=== PATIENT | male | born 1945 | race Caucasian/White ===

== ENCOUNTER 2019-08-27 17:03 | Emergency (ER) | payer MEDICARE, BC ==
--- NOTE | 2019-08-27 17:09 | EDM.PDOC ---
ED HPI GENERAL MEDICAL PROBLEM - General Stated Complaint: "I'm fine" Time Seen by Provider: 08/27/19 17:07 Source of Information: Reports: Patient History Limitations: Reports: No Limitations - History of Present Illness INITIAL COMMENTS - FREE TEXT/NARRATIVE: 74-year-old male who was hunting pheasants all day with his family and friends. He really did not do any strenuous activity during this period of time in that he did not do any prolonged walking and he seemed to be responding appropriately and having no complaints through most of the afternoon. This afternoon at approximately 2:30 to 3 PM, they stopped at a bar and had multiple drinks. Apparently the patient had 3 beers and 2 mixed drinks over a relatively short period of time. He did not really eat or drink at other things through the day. Apparently in the car ride on the way home he seemed to be disengaged and "out of it". He also seemed to have very slurred speech and really seem to be making sense when they talked to him. He really had no complaints though he had no chest pain complaints or shortness of breath complaints and he did not complain of any headache. When they took him home. He was having pretty extensive difficulty walking and they had to assist him quite a bit apparently. He also apparently fell while he was in the garage and they are unsure if he hit his head. At this point he seems incoherent to them and he apparently had an episode of vomiting at home in with these symptoms, they were concerned that he could be having a stroke and brought into the emergency department for evaluation. Upon arrival. The patient presents via private vehicle and is brought in by [facility]. His only complaint was that he threw up. He denies any headache or chest pain or shortness of breath this point. He does have a strong odor of alcohol on his breath and he has slurred speech he does seem to be moving his arms and legs symmetrically and appropriately and he was able to assist the staff to get onto the stretcher. There are no other associated signs or symptoms. There are no other modifying factors. Onset: Today (3:30 PM) Duration: Getting Worse (Seems to have worsened over time) Location: Reports: Other (No reported pain) Quality: Reports: Other (No pain just altered mental status) Severity: Moderate Improves with: Reports: None Worsens with: Reports: None Context: Reports: Other (As above) Associated Symptoms: Reports: Confusion, Nausea/Vomiting, Weakness (Generalized) Treatments [employer]: Reports: Other (see below) (Nothing) - Related Data Allergies Allergy/AdvReac Type Severity Reaction Status Date / Time No Known Allergies Allergy Verified 08/27/19 18:17 Home Meds: Home Meds Allopurinol [Zyloprim] 300 mg PO DAILY 08/31/15 [History] Aspirin [Halfprin] 81 mg PO DAILY 08/31/15 [History] Atenolol/Chlorthalidone [Atenolol-Chlorthalidone 50-25] 0.5 tab PO DAILY [History] Calcium Carbonate/Vitamin D3 [Caltrate 600 Plus D3 Tablet] 1 each PO DAILY 08/31 [History] Cholecalciferol (Vitamin D3) [Vitamin D3] 1,000 unit PO DAILY 08/31/15 [History] Fluticasone Propionate [Flonase] 1 spray NS DAILY 08/31/15 [History] Glucosamine [Glucosamine Sulfate] 2 tab PO DAILY 08/31/15 [History] Multivitamin with Minerals [Multiple Vitamin] 1 tab PO DAILY 08/31/15 [History] Pyridostigmine [Mestinon] 60 mg PO DAILY 08/31/15 [History] Sildenafil [Viagra] 100 mg PO DAILY 08/31/15 [History] predniSONE [Prednisone] 5 mg PO DAILY 08/31/15 [History] Past Medical History HEENT History: Reports: Allergic Rhinitis, Cataract, Macular Degeneration Other HEENT History: CERVICALGIA Cardiovascular History: Reports: CAD, High Cholesterol, Hypertension, Other ( See Below) Other Cardiovascular History: EDEMA Respiratory History: Reports: Asthma Gastrointestinal History: Reports: Colon Polyp, Hemorrhoids Genitourinary History: Reports: Other (See Below) Other Genitourinary History: 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 Usually has 1-2 drinks every day) - Living Situation & Occupation Living situation: Reports: , with Spouse Occupation: Retired ED ROS GENERAL - Review of Systems Review Of Systems: See Below Constitutional: Reports: Weakness (Generalized weakness since approximately 3: 30 PM. No symptoms prior.) HEENT: Reports: No Symptoms Respiratory: Reports: No Symptoms Cardiovascular: Reports: No Symptoms GI/Abdominal: Reports: Vomiting (1) : Reports: No Symptoms Musculoskeletal: Reports: No Symptoms Skin: Reports: No Symptoms Neurological: Reports: Trouble Speaking (Reported slurred speech), Difficulty Walking (As above.), Other (No reports of localized area of weakness or numbness.) Hematologic/Lymphatic: Reports: No Symptoms Immunologic: Reports: No Symptoms ED EXAM, GENERAL - Physical Exam Exam: See Below Exam Limited By: No Limitations General Appearance: Alert, WD/WN, No Apparent Distress Eye Exam: Bilateral Eye: EOMI (There is lateral gaze nystagmus at less than 45. ), Normal Inspection Ears: Normal External Exam, Hearing Grossly Normal Ear Exam: Bilateral Ear: Auricle Normal Nose: Normal Inspection, Normal Mucosa, No Blood Throat/Mouth: Normal Voice, No Airway Compromise, Other (Strong odor of alcohol on his breath) Head: Normocephalic, Other (There is some swelling over his right parietal scalp area. There is no crepitus or depression noted here.) Neck: Normal Inspection, Supple, Non-Tender, Full Range of Motion Respiratory/Chest: No Respiratory Distress, Lungs Clear, Normal Breath Sounds, No Accessory Muscle Use, Chest Non-Tender Cardiovascular: Normal Peripheral Pulses, Regular Rate, Rhythm, No JVD Peripheral Pulses: 2+: Radial (L), Radial (R) GI/Abdominal: Normal Bowel Sounds, Soft, Non-Tender, No Organomegaly, No Mass Back Exam: Normal Inspection Extremities: Normal Range of Motion, Non-Tender, Normal Capillary Refill, Pedal Edema (This is reported as chronic per the .) Neurological: Alert, Oriented (3), CN II-XII Intact, No Motor/Sensory Deficits , Other (Slurred speech but no pronator drift and no localizing signs) Skin Exam: Warm, Dry, Intact, Normal Color, No Rash EKG INTERPRETATION EKG Date: 08/27/19 Time: 17:04 Rhythm: NSR Rate (Beats/Min): 51 [place]: LAD-Left [place] Deviation (Left anterior fascicular block) P-Wave: Present QRS: Other (Left anterior fascicular block) ST-T: Other (Lateral T-wave flattening) QT: Prolonged OR/PQ Interval: OR appears normal to me at less than 210 Comparison: NA - No Prior EKG EKG Interpretation Comments: There is no old EKG for comparison. There is no acute injury pattern or acute pattern of ischemia. Course - Vital Signs Last Recorded V/S: Last Vital Signs Temp 36.8 C 08/27/19 17:05 Pulse 51 L 08/27/19 17:05 Resp 18 08/27/19 17:05 BP 147/69 H 08/27/19 17:05 Pulse Ox 97 08/27/19 17:05 - Orders/Labs/Meds Orders: Active Orders 24 hr Category Date Time Status EKG Documentation Completion [RC] ASDIRECTED Care 08/27/19 17:24 Active Head wo Cont [CT] Stat Exams 08/27/19 17:22 Taken Sodium Chloride 0.9% [Normal Saline] 1,000 ml Med 08/27/19 17:30 Active IV ASDIRECTED Sodium Chloride 0.9% [Saline Flush] Med 08/27/19 17:22 Active 10 ml FLUSH ASDIRECTED PRN Peripheral IV Insertion Adult [OM.PC] Routine Oth 08/27/19 17:22 Ordered EKG 12 Lead [EK] Routine Ther 08/27/19 17:22 Ordered Medication Orders Sodium Chloride (Normal Saline) 1,000 mls @ 999 mls/hr IV ASDIRECTED NATALIE Last Admin: 08/27/19 17:31 Dose: 999 mls/hr Sodium Chloride (Saline Flush) 10 ml FLUSH ASDIRECTED PRN PRN Reason: Keep Vein Open Labs: Laboratory Tests 08/27/19 08/27/19 08/27/19 Range/Units 17:35 17:35 17:35 WBC 7.1 (4.5-12.0) X10-3/uL RBC 4.76 (4.30-5.75) x10(6)uL Hgb 15.1 (13.5-17.8) g/dL Hct 45.3 (30.0-51.3) % MCV 95.2 (80-96) fL MCH 31.6 (27.7-33.6) pg MCHC 33.2 (32.2-35.4) g/dL RDW 12.8 (11.5-15.5) % Plt Count 118 L (125-369) X10(3)uL MPV 7.4 (7.4-10.4) fL Neut % (Auto) 64.7 (46-82) % Lymph % (Auto) 25.5 (13-37) % [place] % (Auto) 6.9 (4-12) % Eos % (Auto) 2 (1.0-5.0) % Baso % (Auto) 1 (0-2) % Neut # (Auto) 4.6 (1.6-8.3) # Lymph # (Auto) 1.8 (0.6-5.0) # [place] # (Auto) 0.5 (0.0-1.3) # Eos # (Auto) 0.2 (0.0-0.8) # Baso # (Auto) 0.0 (0.0-0.2) # Sodium 138 (135-145) mmol/L Potassium 3.7 (3.5-5.3) mmol/L Chloride 103 (100-110) mmol/L Carbon Dioxide 21 (21-32) mmol/L BUN 39 H (7-18) mg/dL Creatinine 2.6 H* (0.70-1.30) mg/dL Est Cr Clr Drug Dosing TNP Estimated GFR (MDRD) 24 L (>60) BUN/Creatinine Ratio 15.0 (9-20) Glucose 127 H (80-116) mg/dL Calcium 8.3 L (8.6-10.2) mg/dL Magnesium 1.8 (1.8-2.5) mg/dL Total Bilirubin 0.6 (0.1-1.3) mg/dL AST 19 (5-25) IU/L ALT 20 (12-36) U/L Alkaline Phosphatase 53 L (56-112) IU/L Troponin I < 0.017 L (<0.017-0.056) ng/mL C-Reactive Protein < 0.2 L (0.5-0.9) mg/dL Total Protein 6.5 (6.0-8.0) g/dL Albumin 3.3 (3.2-4.6) g/dL Globulin 3.2 g/dL Albumin/Globulin Ratio 1.0 Ethyl Alcohol 0.23 H* (<0.03) % Meds: Medications Generic Name Dose Route Start Last Admin Trade Name Freq PRN Reason Stop Dose Admin Sodium Chloride 1,000 mls @ 999 mls/hr 08/27/19 17:30 08/27/19 17:31 Normal Saline IV 999 mls/hr ASDIRECTED NATALIE Administration Sodium Chloride 10 ml 08/27/19 17:22 Saline Flush FLUSH ASDIRECTED PRN Keep Vein Open Discontinued Medications Generic Name Dose Route Start Last Admin Trade Name Freq PRN Reason Stop Dose Admin Ondansetron HCl 4 mg 08/27/19 17:25 08/27/19 17:32 Zofran IVPUSH 08/27/19 17:26 4 mg ONETIME ONE Administration - Re-Assessments/Exams Free Text/Narrative Re-Assessment/Exam: 08/27/19 18:40: Patient is awake and alert. He still has somewhat slurred speech and there is a strong odor of alcohol his breath. His serum alcohol was 230 mg/dL. His other blood tests were normal except for a creatinine of 2.6 which the patient and his no of and have been told that he has renal insufficiency. The EKG although not normal does not show any acute injury pattern or any acute pattern of ischemia he is having no chest symptoms. The CT scan of his head showed no fracture or bleeding. He does have evidence of head injury with movement, on his right parietal scalp which probably occurred when he fell try to get into the house this evening. I feel that his symptoms of altered mental status, discoordination and vomiting are most probably related to acute alcohol intoxication and I discussed this with the patient with his . I do not see any evidence of a cardiac issue or any evidence of a stroke. He is much more awake and fluid in his conversation then he was upon arrival. I have given the patient a normal saline bolus as well as some Zofran. He has had no further emesis. The plan will be to ambulate the patient and if he ambulates well he will be discharged home. 08/27/19 19:20: The patient ambulated well. He has remained vitally stable. The patient and his are in agreement with the plans for discharge. Departure - Departure Time of Disposition: 19:30 Disposition: Home, Self-Care 01 Condition: Good (Improved) Clinical Impression: Alcoholic liver disease, Thrombocytopenia, Dehydration Alcoholic intoxication Qualifiers: Complication of substance-induced condition: uncomplicated Qualified Code(s): F10.920 - Alcohol use, unspecified with intoxication, uncomplicated Fall from standing Qualifiers: Encounter type: initial encounter Qualified Code(s): W19.XXXA - Unspecified fall, initial encounter Contusion of head Qualifiers: Encounter type: initial encounter Contusion of head detail: scalp Qualified Code(s): S00.03XA - Contusion of scalp, initial encounter Chronic renal insufficiency Qualifiers: Chronic kidney disease stage: stage 3 (moderate) Qualified Code(s): N18.3 - Chronic kidney disease, stage 3 (moderate) - Discharge Information Instructions: Alcoholic Liver Disease, [id number], Alcohol Use Disorder, Alcohol Intoxication, [id number], Dehydration, Adult, [id number] Referrals: Everett Persaud MD [Primary Care Provider] - Forms: ED Department Discharge Additional Instructions: Your EKG showed no evidence of a heart attack. The CT scan of your head showed no bleeding or fracture but you do have a bruise or contusion to your right scalp. Your blood tests showed evidence of chronic kidney disease, low platelet count and elevated liver tests. Your blood alcohol was 230 mg/dL which is quite high (it is 3 times the legal limit). The low platelet count and the elevated liver tests suggest that you have alcohol-related liver disease and all of these things suggest that you have been overusing alcohol. You should strongly sitter decreasing or stopping her alcohol use as it appears to be affecting your health in a negative way. Rest. Drink plenty of fluids. Follow-up with your primary doctor. Back to the emergency department for unrelenting vomiting, change in level of responsiveness or any other concerning sign or symptom. - My Orders Last 24 Hours: My Active Orders 08/27/19 17:22 Head wo Cont [CT] Stat Sodium Chloride 0.9% [Saline Flush] 10 ml FLUSH ASDIRECTED PRN Peripheral IV Insertion Adult [OM.PC] Routine EKG 12 Lead [EK] Routine 08/27/19 17:24 EKG Documentation Completion [RC] ASDIRECTED 08/27/19 17:30 Sodium Chloride 0.9% [Normal Saline] 1,000 ml IV ASDIRECTED - Assessment/Plan Last 24 Hours: My Active Orders 08/27/19 17:22 Head wo Cont [CT] Stat Sodium Chloride 0.9% [Saline Flush] 10 ml FLUSH ASDIRECTED PRN Peripheral IV Insertion Adult [OM.PC] Routine EKG 12 Lead [EK] Routine 08/27/19 17:24 EKG Documentation Completion [RC] ASDIRECTED 08/27/19 17:30 Sodium Chloride 0.9% [Normal Saline] 1,000 ml IV ASDIRECTED
[2019-08-27] MEDS ORDERED: Sodium Chloride 0.9% 10 ML Syringe FLUSH PRN (17:22)
[2019-08-27] MEDS ORDERED: Ondansetron 4 MG/2 ML SDV IVPUSH ONE (17:25)
[2019-08-27] MEDS ORDERED: Sodium Chloride 0.9% 1,000 ML IV SCH (17:30)
[2019-08-27 19:21] VITALS: BP 147/69; PULSE 51
== END 2019-08-27 19:36 | disposition home or self-care (01) ==
LOC: FB.ED 17:03
DX: S00.03XA Contusion of scalp, initial encounter (principal); I12.9 Hypertensive chronic kidney disease with stage 1 through stage 4 chronic kidney disease, or unspecified chronic kidney disease; E11.22 Type 2 diabetes mellitus with diabetic chronic kidney disease; N18.3 Chronic kidney disease, stage 3 (moderate); K70.9 Alcoholic liver disease, unspecified; F10.120 Alcohol abuse with intoxication, uncomplicated; D69.6 Thrombocytopenia, unspecified; E86.0 Dehydration; J45.909 Unspecified asthma, uncomplicated; I25.10 Atherosclerotic heart disease of native coronary artery without angina pectoris; E66.9 Obesity, unspecified; Z79.82 Long term (current) use of aspirin; Z79.899 Other long term (current) drug therapy; Z68.31 Body mass index [BMI] 31.0-31.9, adult; Y90.7 Blood alcohol level of 200-239 mg/100 ml; W19.XXXA Unspecified fall, initial encounter
CPT/HCPCS: 36415; 70450; 80053; 82962; 83735; 84484; 85025; 86140; 93005; 96374; 99284; G0480; J2405; J7030

== ENCOUNTER 2020-10-05 12:29 | Inpatient (IN) | payer MEDICARE, BC ==
[2020-10-05] MEDS ORDERED: cefTRIAXone 1 GM in Sodium Chloride 0.9% 50 ML IV SCH (13:00)
[2020-10-05] MEDS ORDERED: Azithromycin 500 MG in Sodium Chloride 0.9% 250 ML IV ONE (13:30)
[2020-10-05] MEDS: Sodium Chloride 0.9% 1,000 ML IV SCH (13:44)
[2020-10-05] MEDS: Enoxaparin 60 MG/0.6 ML Syringe SUBCUT SCH (13:45)
[2020-10-05] MEDS: cefTRIAXone 1 GM Vial IVPUSH SCH (13:46)
[2020-10-05] MEDS: Albuterol/Ipratropium 3.0-0.5 MG/3 ML Neb Soln NEB SCH ×2 (13:46→20:50)
--- NOTE | 2020-10-05 16:49 | PCM.HP.2 ---
H&P History of Present Illness - General Date of Service: 10/05/20 Admit Problem/Dx: Admission Diagnosis/Problem Admission Diagnosis/Problem Pneumonia Source of Information: Patient, Old Records History Limitations: Reports: No Limitations - History of Present Illness Initial Comments - Free Text/Narative: Aditya has had flulike symptoms since last week. They include cough,nasal congestion, sinus congestion. He also feels more short of breath than usual,and lethargic. He went in to see Dr Persaud for that reason. No headache or body aches.He has a h/o CAD s/CABG x 4,HTn,DM and CKD stage 3. DENIES ANY PAIN WHEN ASKED AT PRESENT TIME Pain Score (Numeric/FACES): 0 - Related Data Allergies/Adverse Reactions: Allergies Allergy/AdvReac Type Severity Reaction Status Date / Time No Known Allergies Allergy Verified 08/27/19 18:17 Home Medications: Home Meds Aspirin [Halfprin] 81 mg PO DAILY 08/31/15 [History] Calcium Carbonate/Vitamin D3 [Caltrate 600 Plus D3 Tablet] 1 each PO DAILY 08/31/15 [History] Fluticasone Propionate [Flonase] 1 spray NASBOTH DAILY PRN 08/31/15 [History] Pyridostigmine [Mestinon] 60 mg PO DAILY 08/31/15 [History] predniSONE [Prednisone] 5 mg PO DAILY 08/31/15 [History] Metoprolol Succinate [Toprol XL 50mg] 50 mg PO DAILY 10/05/20 [History] atorvaSTATin [Lipitor] 10 mg PO DAILY 10/05/20 [History] Past Medical History HEENT History: Reports: Allergic Rhinitis, Cataract, Macular Degeneration Other HEENT History: CERVICALGIA Cardiovascular History: Reports: CAD, High Cholesterol, Hypertension, Other (See Below) Other Cardiovascular History: EDEMA Respiratory History: Reports: Asthma Gastrointestinal History: Reports: Colon Polyp, Hemorrhoids Genitourinary History: Reports: Other (See Below) Other Genitourinary History: 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 Musculoskeletal History: Reports: Gout, Other (See Below) Other Musculoskeletal History: CERVICALGIA, MYASTHENIA GRAVIS Neurological History: Reports: None Psychiatric History: Reports: None Endocrine/Metabolic History: Reports: Diabetes, Type II, Obesity/BMI 30+ Hematologic History: Reports: None Immunologic History: Reports: None Oncologic (Cancer) History: Reports: None Dermatologic History: Reports: None - Past Surgical History Head Surgeries/Procedures: Reports: None HEENT Surgical History: Reports: None Cardiovascular Surgical History: Reports: Coronary Artery Bypass Respiratory Surgical History: Reports: None GI Surgical History: Reports: Colonoscopy Other GI Surgeries/Procedures: BENIGN NEOPLASM OF COLON, DYSPLASTIC COLON POLYP Male Surgical History: Reports: Other (See Below) Other Male Surgeries/Procedures: PSYCHOSEXUAL DYSFUNCTION WITH INHIBITED SEXUAL EXCITEMENT Endocrine Surgical History: Reports: None Neurological Surgical History: Reports: None Musculoskeletal Surgical History: Reports: None Social & Family History - Tobacco Use Tobacco Use Status *Q: Never Tobacco User - Caffeine Use Caffeine Use: Reports: Coffee Other Caffeine Use: 2-3 times a wk - Alcohol Use Days Per Week of Alcohol Use: 2 Number of Drinks Per Day: 3 Total Drinks Per Week: 6 - Recreational Drug Use Recreational Drug Use: No - Living Situation & Occupation Living situation: Reports: , with Spouse Occupation: Retired H&P Review of Systems - Review of Systems: Review Of Systems: Comprehensive ROS is negative, except as noted in HPI. Exam - Exam Exam: See Below - Vital Signs Vital Signs: Last Vital Signs Temp Pulse Resp BP Pulse Ox 96 10/05/20 12:40 Weight: 103.555 kg - Exam Quality Assessment: Supplemental Oxygen General: Alert HEENT: PERRLA Neck: Supple Lungs: Decreased Breath Sounds, Crackles, Rales Cardiovascular: Regular Rate GI/Abdominal Exam: Normal Bowel Sounds (Male) Exam: No Hernia Back Exam: Normal Inspection, Full Range of Motion Extremities: No Pedal Edema Skin: Warm Neurological: Cranial Nerves Intact Neuro Extensive - Mental Status: Alert Psychiatric: Alert, Normal Affect - Patient Data Lab Results Last 24 hrs: Laboratory Results - last 24 hr 10/05/20 10/05/20 10/05/20 Range/Units 12:45 14:10 14:10 WBC 7.7 (3.2-10.1) x10-3/uL RBC 4.38 (3.90-5.90) x10(6)uL Hgb 13.6 (12.9-17.7) g/dL Hct 41.7 (38.3-50.1) % MCV 95.2 (80.8-98.7) fL MCH 31.0 (27.0-33.3) pg MCHC 32.5 (28.7-35.3) g/dL RDW 14.2 (12.4-15.0) % Plt Count 162 (117-477) x10(3)uL MPV 8.2 (6.7-11.0) fL Neut % (Auto) 89.2 H (40.3-71.8) % Lymph % (Auto) 7.0 L (15.8-45.3) % [place] % (Auto) 3.5 L (5.5-15.2) % Eos % (Auto) 0.1 (0.1-6.8) % Baso % (Auto) 0.2 L (0.3-3.8) % Neut # (Auto) 6.9 (1.7-6.9) x10-3/uL Lymph # (Auto) 0.5 (0.5-4.5) x10-3/uL [place] # (Auto) 0.3 (0.0-1.2) x10-3/uL Eos # (Auto) 0.0 (0.0-0.6) x10-3/uL Baso # (Auto) 0.0 (0.0-0.3) x10-3/uL PT 12.5 H (9.0-11.1) sec INR 1.17 (1.00-1.24) APTT 32.4 (24.4-33.2) SECONDS D-Dimer, Quantitative 1.82 H (0.0-0.59) mg/LFEU Sodium (135-145) mmol/L Potassium (3.5-5.3) mmol/L Chloride (100-110) mmol/L Carbon Dioxide (21-32) mmol/L BUN (7-18) mg/dL Creatinine (0.70-1.30) mg/dL Est Cr Clr Drug Dosing mL/min Estimated GFR (MDRD) (>60) BUN/Creatinine Ratio (9-20) Glucose (80-116) mg/dL Calcium (8.6-10.2) mg/dL Total Bilirubin (0.1-1.3) mg/dL AST (5-25) IU/L ALT (12-36) U/L Alkaline Phosphatase (56-112) IU/L Total Protein (6.0-8.0) g/dL Albumin (3.2-4.6) g/dL Globulin g/dL Albumin/Globulin Ratio SARS-CoV-2 RNA (DAVID) Positive H (NEGATIVE) 10/05/20 Range/Units 14:10 WBC (3.2-10.1) x10-3/uL RBC (3.90-5.90) x10(6)uL Hgb (12.9-17.7) g/dL Hct (38.3-50.1) % MCV (80.8-98.7) fL MCH (27.0-33.3) pg MCHC (28.7-35.3) g/dL RDW (12.4-15.0) % Plt Count (117-477) x10(3)uL MPV (6.7-11.0) fL Neut % (Auto) (40.3-71.8) % Lymph % (Auto) (15.8-45.3) % [place] % (Auto) (5.5-15.2) % Eos % (Auto) (0.1-6.8) % Baso % (Auto) (0.3-3.8) % Neut # (Auto) (1.7-6.9) x10-3/uL Lymph # (Auto) (0.5-4.5) x10-3/uL [place] # (Auto) (0.0-1.2) x10-3/uL Eos # (Auto) (0.0-0.6) x10-3/uL Baso # (Auto) (0.0-0.3) x10-3/uL PT (9.0-11.1) sec INR (1.00-1.24) APTT (24.4-33.2) SECONDS D-Dimer, Quantitative (0.0-0.59) mg/LFEU Sodium 138 (135-145) mmol/L Potassium 3.7 (3.5-5.3) mmol/L Chloride 101 (100-110) mmol/L Carbon Dioxide 24 (21-32) mmol/L BUN 52 H D (7-18) mg/dL Creatinine 3.6 H* (0.70-1.30) mg/dL Est Cr Clr Drug Dosing 19.16 mL/min Estimated GFR (MDRD) 17 L (>60) BUN/Creatinine Ratio 14.4 (9-20) Glucose 143 H (80-116) mg/dL Calcium 8.5 L (8.6-10.2) mg/dL Total Bilirubin 0.6 (0.1-1.3) mg/dL AST 27 H D (5-25) IU/L ALT 20 (12-36) U/L Alkaline Phosphatase 55 L (56-112) IU/L Total Protein 7.1 (6.0-8.0) g/dL Albumin 2.2 L (3.2-4.6) g/dL Globulin 4.9 g/dL Albumin/Globulin Ratio 0.5 SARS-CoV-2 RNA (DAVID) (NEGATIVE) Result Diagrams: 10/06/20 06:30 10/06/20 06:30 Sepsis Event Note - Evaluation Sepsis Screening Result: No Definite Risk - Focused Exam Vital Signs: Vital Signs Pulse Ox Pulse Ox 10/05/20 12:40 96 10/05/20 12:35 96 - Problem List (1) COVID-19 SNOMED Code(s): 165686059 ICD Code: U07.1 - COVID-19 Status: Acute Current Visit: Yes (2) CKD (chronic kidney disease) SNOMED Code(s): 225603094 ICD Code: N18.9 - CHRONIC KIDNEY DISEASE, UNSPECIFIED Status: Acute Curre nt Visit: Yes Qualifiers: Chronic kidney disease stage: stage 3 (moderate) (3) Diabetes type 2, controlled SNOMED Code(s): 99329342, 696101756 ICD Code: E11.9 - TYPE 2 DIABETES MELLITUS WITHOUT COMPLICATIONS Status: Acute Current Visit: Yes Qualifiers: Diabetes mellitus emt intermediate insulin use: without intermediate use Diabetes mellitus complication status: with kidney complications Chronic kidney disease stage: stage 3 (moderate) (4) CAD (coronary artery disease) SNOMED Code(s): 54251645 ICD Code: I25.10 - ATHSCL HEART DISEASE OF [place] CORONARY ARTERY W/O ANG PCTRS Status: Chronic Current Visit: Yes Qualifiers: Coronary Disease-Associated Artery/Lesion type: bypass graft [place] vs. transplanted heart: [place] heart Associated angina: without angina Qualified Code(s): I25.810 - Atherosclerosis of coronary artery bypass graft(s) without angina pectoris (5) Myasthenia gravis SNOMED Code(s): 63973731 ICD Code: G70.00 - MYASTHENIA GRAVIS WITHOUT (ACUTE) EXACERBATION Status: Acute Current Visit: Yes Problem List Initiated/Reviewed/Updated: Yes Orders Last 24hrs: Active Orders 24 hr Category Date Time Status Patient Status [ADT] Routine ADT 10/05/20 12:38 Active Bedrest Bathroom Privileges [RC] ASDIRECTED Care 10/05/20 12:38 Active Blood Glucose Check, Bedside [RC] 07,17 Care 10/05/20 12:38 Active Height and Weight [RC] 0600 Care 10/05/20 12:38 Active Oxygen Therapy [RC] 08,16,00 Care 10/05/20 12:38 Active Pulse Oximetry [RC] PRN Care 10/05/20 12:40 Active RT Aerosol Therapy [RC] ASDIRECTED Care 10/05/20 12:51 Active Up ad Radha [RC] ASDIRECTED Care 10/05/20 12:38 Active VTE/DVT Education [RC] Per Unit Routine Care 10/05/20 12:38 Active Vital Signs [RC] 08,16,00 Care 10/05/20 12:38 Active Regular Diet [DIET] Diet 10/05/20 Lunch Active CBC WITH AUTO DIFF [HEME] Routine Lab 10/06/20 06:00 Ordered CULTURE SPUTUM + SMEAR [RM] Routine Lab 10/05/20 12:38 Ordered D-DIMER QUANTITATIVE [COAG] Routine Lab 10/06/20 06:00 Ordered FERRITIN, SERUM Routine Lab 10/05/20 14:10 Received RENAL FUNCTION PANEL,RFP [CHEM] Routine Lab 10/06/20 06:00 Ordered Albuterol/Ipratropium [DuoNeb 3.0-0.5 MG/3 ML] Med 10/05/20 13:00 Active 3 ml NEB Q8H Azithromycin [Zithromax] Med 10/06/20 09:00 Active 250 mg PO DAILY Enoxaparin [Lovenox] Med 10/05/20 13:30 Active 50 mg SUBCUT Q24H Metoprolol Succinate [Toprol XL] Med 10/06/20 09:00 Active 50 mg PO DAILY Pyridostigmine [Mestinon] Med 10/06/20 09:00 Active 60 mg PO DAILY Sodium Chloride 0.9% [Normal Saline] 1,000 ml Med 10/05/20 12:45 Active IV ASDIRECTED cefTRIAXone [Rocephin] Med 10/05/20 13:15 Active 1 gm IVPUSH Q24H predniSONE Med 10/06/20 09:00 Active 5 mg PO DAILY Antiembolic Hose [OM.PC] Per Unit Routine Oth 10/05/20 12:41 Ordered Resuscitation Status Routine Resus Stat 10/05/20 12:38 Ordered Medication Orders Albuterol/Ipratropium (Duoneb 3.0-0.5 Mg/3 Ml) 3 ml NEB Q8H [facility] Last Admin: 10/05/20 13:46 Dose: 3 ml Documented by: VOLODYMYR Azithromycin (Zithromax) 250 mg PO DAILY [facility] Stop: 10/09/20 23:59 Ceftriaxone Sodium (Rocephin) 1 gm IVPUSH Q24H [facility] Last Admin: 10/05/20 13:46 Dose: 1 gm Documented by: VOLODYMYR Enoxaparin Sodium (Lovenox) 50 mg SUBCUT Q24H [facility] Last Admin: 10/05/20 13:45 Dose: 50 mg Documented by: VOLODYMYR Sodium Chloride (Normal Saline) 1,000 mls @ 75 mls/hr IV ASDIRECTED [facility] Last Admin: 10/05/20 13:44 Dose: 75 mls/hr Documented by: VOLODYMYR Metoprolol Succinate (Toprol Xl) 50 mg PO DAILY [facility] Prednisone (Prednisone) 5 mg PO DAILY [facility] Pyridostigmine [place] (Mestinon) 60 mg PO DAILY [facility] Assessment/Plan Comment:: Admit for O2 supplementation,IV fluid,IV antibiotic and Decadron .DVT prophylaxis.Monitor Vital signs
[2020-10-05] MEDS: Dexamethasone 4 MG/ML SDV IVPUSH SCH (17:22)
[2020-10-05] MEDS: atorvaSTATin 10 MG Tab PO SCH (20:51)
[2020-10-06] MEDS: Sodium Chloride 0.9% 1,000 ML IV SCH (03:18)
[2020-10-06] MEDS: Albuterol/Ipratropium 3.0-0.5 MG/3 ML Neb Soln NEB SCH ×3 (05:53→19:59)
[2020-10-06] MEDS: Azithromycin 250 MG Tab PO SCH (08:04)
[2020-10-06] MEDS: Dexamethasone 4 MG/ML SDV IVPUSH SCH (08:05)
[2020-10-06] MEDS: Metoprolol Succinate 50 MG Tab.ER PO SCH (08:06)
[2020-10-06] MEDS ORDERED: predniSONE 5 MG Tab PO SCH (09:00)
[2020-10-06] MEDS ORDERED: Allopurinol 300 MG Tab PO SCH (09:00)
[2020-10-06] MEDS ORDERED: Furosemide 40 MG/4 ML VIAL IVPUSH ONE (09:01)
--- NOTE | 2020-10-06 09:05 | PCM.PN ---
- General Info Date of Service: 10/06/20 Subjective Update: Aditya is stable,although he has needed more oxygen supplementation. More SOB on exertion Functional Status: Reports: Pain Controlled, Tolerating Diet - Review of Systems HEENT: Reports: No Symptoms Pulmonary: Reports: Shortness of Breath. Denies: Sputum Cardiovascular: Reports: Dyspnea on Exertion, Orthopnea Gastrointestinal: Reports: No Symptoms Genitourinary: Reports: No Symptoms - Patient Data Vitals - Most Recent: Last Vital Signs Temp 97.1 F 10/06/20 07:09 Pulse 73 10/06/20 08:06 Resp 18 10/06/20 07:09 BP 144/86 H 10/06/20 08:06 Pulse Ox 91 L 10/06/20 07:10 Weight - Most Recent: 104.383 kg I&O - Last 24 Hours: Intake & Output 10/05/20 10/06/20 10/06/20 22:59 06:59 14:59 Intake Total 774 664 Balance 774 664 Lab Results Last 24 Hours: Laboratory Results - last 24 hr 10/05/20 10/05/20 10/05/20 Range/Units 12:45 14:10 14:10 WBC 7.7 (3.2-10.1) x10-3/uL RBC 4.38 (3.90-5.90) x10(6)uL Hgb 13.6 (12.9-17.7) g/dL Hct 41.7 (38.3-50.1) % MCV 95.2 (80.8-98.7) fL MCH 31.0 (27.0-33.3) pg MCHC 32.5 (28.7-35.3) g/dL RDW 14.2 (12.4-15.0) % Plt Count 162 (117-477) x10(3)uL MPV 8.2 (6.7-11.0) fL Neut % (Auto) 89.2 H (40.3-71.8) % Lymph % (Auto) 7.0 L (15.8-45.3) % [place] % (Auto) 3.5 L (5.5-15.2) % Eos % (Auto) 0.1 (0.1-6.8) % Baso % (Auto) 0.2 L (0.3-3.8) % Neut # (Auto) 6.9 (1.7-6.9) x10-3/uL Lymph # (Auto) 0.5 (0.5-4.5) x10-3/uL [place] # (Auto) 0.3 (0.0-1.2) x10-3/uL Eos # (Auto) 0.0 (0.0-0.6) x10-3/uL Baso # (Auto) 0.0 (0.0-0.3) x10-3/uL PT 12.5 H (9.0-11.1) sec INR 1.17 (1.00-1.24) APTT 32.4 (24.4-33.2) SECONDS D-Dimer, Quantitative 1.82 H (0.0-0.59) mg/LFEU Sodium (135-145) mmol/L Potassium (3.5-5.3) mmol/L Chloride (100-110) mmol/L Carbon Dioxide (21-32) mmol/L BUN (7-18) mg/dL Creatinine (0.70-1.30) mg/dL Est Cr Clr Drug Dosing mL/min Estimated GFR (MDRD) (>60) BUN/Creatinine Ratio (9-20) Glucose (80-116) mg/dL POC Glucose (74-100) mg/dL Lactic Acid (0.4-2.0) mmol/L Calcium (8.6-10.2) mg/dL Phosphorus (2.6-4.6) mg/dL Total Bilirubin (0.1-1.3) mg/dL AST (5-25) IU/L ALT (12-36) U/L Alkaline Phosphatase (56-112) IU/L Troponin I (4.0-60.3) pg/mL C-Reactive Protein (0.5-0.9) mg/dL NT-Pro-B Natriuret Pep (<=450) pg/mL Total Protein (6.0-8.0) g/dL Albumin (3.2-4.6) g/dL Globulin g/dL Albumin/Globulin Ratio SARS-CoV-2 RNA (DAVID) Positive H (NEGATIVE) 10/05/20 10/05/20 10/06/20 Range/Units 14:10 18:03 05:59 WBC (3.2-10.1) x10-3/uL RBC (3.90-5.90) x10(6)uL Hgb (12.9-17.7) g/dL Hct (38.3-50.1) % MCV (80.8-98.7) fL MCH (27.0-33.3) pg MCHC (28.7-35.3) g/dL RDW (12.4-15.0) % Plt Count (117-477) x10(3)uL MPV (6.7-11.0) fL Neut % (Auto) (40.3-71.8) % Lymph % (Auto) (15.8-45.3) % [place] % (Auto) (5.5-15.2) % Eos % (Auto) (0.1-6.8) % Baso % (Auto) (0.3-3.8) % Neut # (Auto) (1.7-6.9) x10-3/uL Lymph # (Auto) (0.5-4.5) x10-3/uL [place] # (Auto) (0.0-1.2) x10-3/uL Eos # (Auto) (0.0-0.6) x10-3/uL Baso # (Auto) (0.0-0.3) x10-3/uL PT (9.0-11.1) sec INR (1.00-1.24) APTT (24.4-33.2) SECONDS D-Dimer, Quantitative (0.0-0.59) mg/LFEU Sodium 138 (135-145) mmol/L Potassium 3.7 (3.5-5.3) mmol/L Chloride 101 (100-110) mmol/L Carbon Dioxide 24 (21-32) mmol/L BUN 52 H D (7-18) mg/dL Creatinine 3.6 H* (0.70-1.30) mg/dL Est Cr Clr Drug Dosing 19.16 mL/min Estimated GFR (MDRD) 17 L (>60) BUN/Creatinine Ratio 14.4 (9-20) Glucose 143 H (80-116) mg/dL POC Glucose 256 H 229 H (74-100) mg/dL Lactic Acid (0.4-2.0) mmol/L Calcium 8.5 L (8.6-10.2) mg/dL Phosphorus (2.6-4.6) mg/dL Total Bilirubin 0.6 (0.1-1.3) mg/dL AST 27 H D (5-25) IU/L ALT 20 (12-36) U/L Alkaline Phosphatase 55 L (56-112) IU/L Troponin I (4.0-60.3) pg/mL C-Reactive Protein (0.5-0.9) mg/dL NT-Pro-B Natriuret Pep (<=450) pg/mL Total Protein 7.1 (6.0-8.0) g/dL Albumin 2.2 L (3.2-4.6) g/dL Globulin 4.9 g/dL Albumin/Globulin Ratio 0.5 SARS-CoV-2 RNA (DAVID) (NEGATIVE) 10/06/20 10/06/20 10/06/20 Range/Units 06:30 06:30 06:30 WBC 4.6 (3.2-10.1) x10-3/uL RBC 4.21 (3.90-5.90) x10(6)uL Hgb 13.0 (12.9-17.7) g/dL Hct 39.9 (38.3-50.1) % MCV 94.9 (80.8-98.7) fL MCH 30.9 (27.0-33.3) pg MCHC 32.6 (28.7-35.3) g/dL RDW 14.0 (12.4-15.0) % Plt Count 178 (117-477) x10(3)uL MPV 8.2 (6.7-11.0) fL Neut % (Auto) 82.2 H (40.3-71.8) % Lymph % (Auto) 15.2 L (15.8-45.3) % [place] % (Auto) 2.4 L (5.5-15.2) % Eos % (Auto) 0.0 L (0.1-6.8) % Baso % (Auto) 0.2 L (0.3-3.8) % Neut # (Auto) 3.8 (1.7-6.9) x10-3/uL Lymph # (Auto) 0.7 (0.5-4.5) x10-3/uL [place] # (Auto) 0.1 (0.0-1.2) x10-3/uL Eos # (Auto) 0.0 (0.0-0.6) x10-3/uL Baso # (Auto) 0.0 (0.0-0.3) x10-3/uL PT (9.0-11.1) sec INR (1.00-1.24) APTT (24.4-33.2) SECONDS D-Dimer, Quantitative 1.17 H (0.0-0.59) mg/LFEU Sodium 138 (135-145) mmol/L Potassium 3.6 (3.5-5.3) mmol/L Chloride 101 (100-110) mmol/L Carbon Dioxide 22 (21-32) mmol/L BUN 49 H (7-18) mg/dL Creatinine 3.3 H* (0.70-1.30) mg/dL Est Cr Clr Drug Dosing 20.90 mL/min Estimated GFR (MDRD) 18 L (>60) BUN/Creatinine Ratio 14.8 (9-20) Glucose 211 H (80-116) mg/dL POC Glucose (74-100) mg/dL Lactic Acid (0.4-2.0) mmol/L Calcium 8.2 L (8.6-10.2) mg/dL Phosphorus 3.1 (2.6-4.6) mg/dL Total Bilirubin (0.1-1.3) mg/dL AST (5-25) IU/L ALT (12-36) U/L Alkaline Phosphatase (56-112) IU/L Troponin I (4.0-60.3) pg/mL C-Reactive Protein (0.5-0.9) mg/dL NT-Pro-B Natriuret Pep (<=450) pg/mL Total Protein (6.0-8.0) g/dL Albumin 2.2 L (3.2-4.6) g/dL Globulin g/dL Albumin/Globulin Ratio SARS-CoV-2 RNA (DAVID) (NEGATIVE) 10/06/20 10/06/20 Range/Units 06:30 06:30 WBC (3.2-10.1) x10-3/uL RBC (3.90-5.90) x10(6)uL Hgb (12.9-17.7) g/dL Hct (38.3-50.1) % MCV (80.8-98.7) fL MCH (27.0-33.3) pg MCHC (28.7-35.3) g/dL RDW (12.4-15.0) % Plt Count (117-477) x10(3)uL MPV (6.7-11.0) fL Neut % (Auto) (40.3-71.8) % Lymph % (Auto) (15.8-45.3) % [place] % (Auto) (5.5-15.2) % Eos % (Auto) (0.1-6.8) % Baso % (Auto) (0.3-3.8) % Neut # (Auto) (1.7-6.9) x10-3/uL Lymph # (Auto) (0.5-4.5) x10-3/uL [place] # (Auto) (0.0-1.2) x10-3/uL Eos # (Auto) (0.0-0.6) x10-3/uL Baso # (Auto) (0.0-0.3) x10-3/uL PT (9.0-11.1) sec INR (1.00-1.24) APTT (24.4-33.2) SECONDS D-Dimer, Quantitative (0.0-0.59) mg/LFEU Sodium (135-145) mmol/L Potassium (3.5-5.3) mmol/L Chloride (100-110) mmol/L Carbon Dioxide (21-32) mmol/L BUN (7-18) mg/dL Creatinine (0.70-1.30) mg/dL Est Cr Clr Drug Dosing mL/min Estimated GFR (MDRD) (>60) BUN/Creatinine Ratio (9-20) Glucose (80-116) mg/dL POC Glucose (74-100) mg/dL Lactic Acid 3.0 H* (0.4-2.0) mmol/L Calcium (8.6-10.2) mg/dL Phosphorus (2.6-4.6) mg/dL Total Bilirubin (0.1-1.3) mg/dL AST (5-25) IU/L ALT (12-36) U/L Alkaline Phosphatase (56-112) IU/L Troponin I 19.7 (4.0-60.3) pg/mL C-Reactive Protein 27.0 H* (0.5-0.9) mg/dL NT-Pro-B Natriuret Pep 6653 H* (<=450) pg/mL Total Protein (6.0-8.0) g/dL Albumin (3.2-4.6) g/dL Globulin g/dL Albumin/Globulin Ratio SARS-CoV-2 RNA (DAVID) (NEGATIVE) Med Orders - Current: Current Medications Albuterol/Ipratropium (Duoneb 3.0-0.5 Mg/3 Ml) 3 ml NEB Q8H [facility] Last Admin: 10/06/20 05:53 Dose: 3 ml Documented by: Atorvastatin Calcium (Lipitor) 10 mg PO BEDTIME [facility] Last Admin: 10/05/20 20:51 Dose: 10 mg Documented by: Azithromycin (Zithromax) 250 mg PO DAILY [facility] Stop: 10/09/20 23:59 Last Admin: 10/06/20 08:04 Dose: 250 mg Documented by: Ceftriaxone Sodium (Rocephin) 1 gm IVPUSH Q24H [facility] Last Admin: 10/05/20 13:46 Dose: 1 gm Documented by: Dexamethasone (Decadron) 6 mg IVPUSH DAILY [facility] Last Admin: 10/06/20 08:05 Dose: 6 mg Documented by: Enoxaparin Sodium (Lovenox) 50 mg SUBCUT Q24H [facility] Last Admin: 10/05/20 13:45 Dose: 50 mg Documented by: Furosemide (Lasix) 40 mg IVPUSH NOW ONE Stop: 10/06/20 09:02 Metoprolol Succinate (Toprol Xl) 50 mg PO DAILY [facility] Last Admin: 10/06/20 08:06 Dose: 50 mg Documented by: Pyridostigmine [place] (Mestinon) 30 mg PO DAILY [facility] Discontinued Medications Sodium Chloride (Normal Saline) 1,000 mls @ 75 mls/hr IV ASDIRECTED [facility] Last Admin: 10/06/20 03:18 Dose: 75 mls/hr Documented by: Azithromycin 500 mg/ Sodium (Chloride) 250 mls @ 250 mls/hr IV ONETIME ONE Stop: 10/05/20 14:29 Last Admin: 10/05/20 13:46 Dose: 250 mls/hr Documented by: Prednisone (Prednisone) 5 mg PO DAILY [facility] Pyridostigmine [place] (Mestinon) 60 mg PO DAILY [facility] - Exam Quality Assessment: Supplemental Oxygen General: Alert Neck: Supple Lungs: Crackles, Rales Cardiovascular: Regular Rate Skin: Warm Neurological: No New Focal Deficit Psy/Mental Status: Alert Sepsis Event Note - Evaluation Sepsis Screening Result: No Definite Risk - Focused Exam Vital Signs: Vital Signs Temp Pulse Pulse Resp BP BP Pulse Ox 10/06/20 08:06 73 144/86 H 10/06/20 07:10 10/06/20 07:09 97.1 F 73 18 144/86 H 91 L 10/05/20 23:35 97.7 F 61 18 149/81 H 93 L Pulse Ox 10/06/20 08:06 10/06/20 07:10 91 L 10/06/20 07:09 10/05/20 23:35 - Problem List & Annotations (1) COVID-19 SNOMED Code(s): 432705982 Code(s): U07.1 - COVID-19 Status: Acute Current Visit: Yes (2) CKD (chronic kidney disease) SNOMED Code(s): 010758576 Code(s): N18.9 - CHRONIC KIDNEY DISEASE, UNSPECIFIED Status: Acute Current Visit: Yes Qualifiers: Chronic kidney disease stage: stage 3 (moderate) (3) Diabetes type 2, controlled SNOMED Code(s): 88700268, 925768010 Code(s): E11.9 - TYPE 2 DIABETES MELLITUS WITHOUT COMPLICATIONS Status: Acute Current Visit: Yes Qualifiers: 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 transplanted heart: [place] heart Associated angina: without angina Qualified Code(s): I25.810 - Atherosclerosis of coronary artery bypass graft(s) without angina pectoris (5) Myasthenia gravis SNOMED Code(s): 71361444 Code(s): G70.00 - MYASTHENIA GRAVIS WITHOUT (ACUTE) EXACERBATION Status: Acute Current Visit: Yes (6) CHF (congestive heart failure) SNOMED Code(s): 16764452 Code(s): I50.9 - HEART FAILURE, UNSPECIFIED Status: Acute Current Visit: Yes Qualifiers: Heart failure type: unspecified Heart failure chronicity: acute Qualified Code(s): I50.9 - Heart failure, unspecified - Problem List Review Problem List Initiated/Reviewed/Updated: Yes - My Orders Last 24 Hours: My Active Orders 10/05/20 16:54 EKG Documentation Completion [RC] ASDIRECTED EKG 12 Lead [EK] Routine 10/05/20 17:00 dexAMETHasone [Decadron] 6 mg IVPUSH DAILY 10/05/20 21:00 atorvaSTATin [Lipitor] 10 mg PO BEDTIME 10/06/20 09:01 Furosemide [Lasix] 40 mg IVPUSH NOW ONE 10/06/20 09:15 Pyridostigmine [Mestinon] 30 mg PO DAILY 10/06/20 09:30 LACTIC ACID [CHEM] Routine 10/07/20 05:11 BASIC METABOLIC PANEL,BMP [CHEM] DAILY CBC WITH AUTO DIFF [HEME] DAILY 10/08/20 05:11 BASIC METABOLIC PANEL,BMP [CHEM] DAILY CBC WITH AUTO DIFF [HEME] DAILY 10/09/20 05:11 CBC WITH AUTO DIFF [HEME] DAILY - Assessment Assessment:: His BNP was high,>6000. I will stop IVF,and give him one time Lasix. Continue the rest of treatment. - Plan Plan:: Admit for O2 supplementation,IV fluid,IV antibiotic and Decadron .DVT prophylaxis.Monitor Vital signs
[2020-10-06] MEDS: Sodium Chloride 0.9% 10 ML Syringe FLUSH PRN ×2 (09:19→13:42)
[2020-10-06] MEDS: Enoxaparin 60 MG/0.6 ML Syringe SUBCUT SCH (13:02)
[2020-10-06] MEDS: cefTRIAXone 1 GM Vial IVPUSH SCH (13:42)
[2020-10-06] MEDS: atorvaSTATin 10 MG Tab PO SCH (19:59)
[2020-10-07] MEDS: Albuterol/Ipratropium 3.0-0.5 MG/3 ML Neb Soln NEB SCH ×3 (05:23→20:39)
[2020-10-07] MEDS: Metoprolol Succinate 50 MG Tab.ER PO SCH (08:07)
[2020-10-07] MEDS: Azithromycin 250 MG Tab PO SCH (08:07)
[2020-10-07] MEDS: Sodium Chloride 0.9% 10 ML Syringe FLUSH PRN ×3 (08:08→12:51)
[2020-10-07] MEDS: Dexamethasone 4 MG/ML SDV IVPUSH SCH (08:08)
[2020-10-07] MEDS ORDERED: Furosemide 20 MG/2 ML VIAL IVPUSH ONE (09:53)
--- NOTE | 2020-10-07 09:56 | PCM.PN ---
- General Info Date of Service: 10/07/20 Subjective Update: Still SOB,but feels better. Functional Status: Reports: Tolerating Diet, Ambulating - Review of Systems General: Reports: No Symptoms HEENT: Reports: No Symptoms Cardiovascular: Reports: Dyspnea on Exertion, Edema Gastrointestinal: Reports: No Symptoms - Patient Data Vitals - Most Recent: Last Vital Signs Temp 97.6 F 10/07/20 07:45 Pulse 91 10/07/20 08:07 Resp 22 H 10/07/20 07:45 BP 127/72 10/07/20 08:07 Pulse Ox 90 L 10/07/20 07:45 Weight - Most Recent: 104.78 kg Lab Results Last 24 Hours: Laboratory Results - last 24 hr 10/06/20 10/06/20 10/07/20 Range/Units 09:35 17:17 06:09 WBC (3.2-10.1) x10-3/uL RBC (3.90-5.90) x10(6)uL Hgb (12.9-17.7) g/dL Hct (38.3-50.1) % MCV (80.8-98.7) fL MCH (27.0-33.3) pg MCHC (28.7-35.3) g/dL RDW (12.4-15.0) % Plt Count (117-477) x10(3)uL MPV (6.7-11.0) fL Neut % (Auto) (40.3-71.8) % Lymph % (Auto) (15.8-45.3) % [place] % (Auto) (5.5-15.2) % Eos % (Auto) (0.1-6.8) % Baso % (Auto) (0.3-3.8) % Neut # (Auto) (1.7-6.9) x10-3/uL Lymph # (Auto) (0.5-4.5) x10-3/uL [place] # (Auto) (0.0-1.2) x10-3/uL Eos # (Auto) (0.0-0.6) x10-3/uL Baso # (Auto) (0.0-0.3) x10-3/uL Sodium (135-145) mmol/L Potassium (3.5-5.3) mmol/L Chloride (100-110) mmol/L Carbon Dioxide (21-32) mmol/L BUN (7-18) mg/dL Creatinine (0.70-1.30) mg/dL Est Cr Clr Drug Dosing mL/min Estimated GFR (MDRD) (>60) BUN/Creatinine Ratio (9-20) Glucose (80-116) mg/dL POC Glucose 282 H 231 H (74-100) mg/dL Lactic Acid 2.6 H* (0.4-2.0) mmol/L Calcium (8.6-10.2) mg/dL 10/07/20 10/07/20 Range/Units 06:44 06:44 WBC 8.2 (3.2-10.1) x10-3/uL RBC 4.25 (3.90-5.90) x10(6)uL Hgb 13.2 (12.9-17.7) g/dL Hct 40.3 (38.3-50.1) % MCV 94.7 (80.8-98.7) fL MCH 31.0 (27.0-33.3) pg MCHC 32.8 (28.7-35.3) g/dL RDW 14.1 (12.4-15.0) % Plt Count 214 (117-477) x10(3)uL MPV 8.1 (6.7-11.0) fL Neut % (Auto) 87.6 H (40.3-71.8) % Lymph % (Auto) 7.4 L (15.8-45.3) % [place] % (Auto) 4.6 L (5.5-15.2) % Eos % (Auto) 0.0 L (0.1-6.8) % Baso % (Auto) 0.4 (0.3-3.8) % Neut # (Auto) 7.2 H (1.7-6.9) x10-3/uL Lymph # (Auto) 0.6 (0.5-4.5) x10-3/uL [place] # (Auto) 0.4 (0.0-1.2) x10-3/uL Eos # (Auto) 0.0 (0.0-0.6) x10-3/uL Baso # (Auto) 0.0 (0.0-0.3) x10-3/uL Sodium 140 (135-145) mmol/L Potassium 3.4 L (3.5-5.3) mmol/L Chloride 102 (100-110) mmol/L Carbon Dioxide 20 L (21-32) mmol/L BUN 52 H (7-18) mg/dL Creatinine 3.5 H* (0.70-1.30) mg/dL Est Cr Clr Drug Dosing 19.71 mL/min Estimated GFR (MDRD) 17 L (>60) BUN/Creatinine Ratio 14.9 (9-20) Glucose 224 H (80-116) mg/dL POC Glucose (74-100) mg/dL Lactic Acid (0.4-2.0) mmol/L Calcium 8.5 L (8.6-10.2) mg/dL Med Orders - Current: Current Medications Albuterol/Ipratropium (Duoneb 3.0-0.5 Mg/3 Ml) 3 ml NEB Q8H [facility] Last Admin: 10/07/20 05:23 Dose: 3 ml Documented by: Atorvastatin Calcium (Lipitor) 10 mg PO BEDTIME [facility] Last Admin: 10/06/20 19:59 Dose: 10 mg Documented by: Azithromycin (Zithromax) 250 mg PO DAILY [facility] Stop: 10/09/20 23:59 Last Admin: 10/07/20 08:07 Dose: 250 mg Documented by: Ceftriaxone Sodium (Rocephin) 1 gm IVPUSH Q24H [facility] Last Admin: 10/06/20 13:42 Dose: 1 gm Documented by: Dexamethasone (Decadron) 6 mg IVPUSH DAILY [facility] Last Admin: 10/07/20 08:08 Dose: 6 mg Documented by: Enoxaparin Sodium (Lovenox) 50 mg SUBCUT Q24H [facility] Last Admin: 10/06/20 13:02 Dose: 50 mg Documented by: Furosemide (Lasix) 20 mg IVPUSH NOW ONE Stop: 10/07/20 09:54 Metoprolol Succinate (Toprol Xl) 50 mg PO DAILY [facility] Last Admin: 10/07/20 08:07 Dose: 50 mg Documented by: Pyridostigmine [place] (Mestinon) 30 mg PO DAILY [facility] Last Admin: 10/07/20 08:08 Dose: 30 mg Documented by: Sodium Chloride (Saline Flush) 10 ml FLUSH ASDIRECTED PRN PRN Reason: flush med Last Admin: 10/07/20 08:08 Dose: 10 ml Documented by: Discontinued Medications Furosemide (Lasix) 40 mg IVPUSH NOW ONE Stop: 10/06/20 09:02 Last Admin: 10/06/20 09:19 Dose: 40 mg Documented by: Sodium Chloride (Normal Saline) 1,000 mls @ 75 mls/hr IV ASDIRECTED NATALIE Last Admin: 10/06/20 03:18 Dose: 75 mls/hr Documented by: Azithromycin 500 mg/ Sodium (Chloride) 250 mls @ 250 mls/hr IV ONETIME ONE Stop: 10/05/20 14:29 Last Admin: 10/05/20 13:46 Dose: 250 mls/hr Documented by: Prednisone (Prednisone) 5 mg PO DAILY NATALIE Pyridostigmine [place] (Mestinon) 60 mg PO DAILY [facility] Last Admin: 10/06/20 12:12 Dose: Not Given Documented by: - Exam Quality Assessment: Supplemental Oxygen General: Alert, Oriented, Cooperative Neck: Supple Lungs: Crackles, Rales Cardiovascular: Regular Rate, Regular Rhythm Sepsis Event Note - Evaluation Sepsis Screening Result: Severe Sepsis Risk - Focused Exam Vital Signs: Vital Signs Temp Pulse Pulse Resp BP BP Pulse Ox 10/07/20 08:07 91 127/72 10/07/20 07:45 97.6 F 91 22 H 127/72 90 L 10/06/20 23:30 97.1 F 68 20 146/73 H 95 - Problem List & Annotations (1) COVID-19 SNOMED Code(s): 811271227 Code(s): U07.1 - COVID-19 Status: Acute Current Visit: Yes (2) CKD (chronic kidney disease) SNOMED Code(s): 411351824 Code(s): N18.9 - CHRONIC KIDNEY DISEASE, UNSPECIFIED Status: Acute Current Visit: Yes Qualifiers: Chronic kidney disease stage: stage 3 (moderate) (3) Diabetes type 2, controlled SNOMED Code(s): 47060084, 551556182 Code(s): E11.9 - TYPE 2 DIABETES MELLITUS WITHOUT COMPLICATIONS Status: Acute Current Visit: Yes Qualifiers: Diabetes mellitus manager terminal insulin use: without fdc use Diabetes mellitus complication status: with kidney complications Chronic kidney disease stage: stage 3 (moderate) (4) CAD (coronary artery disease) SNOMED Code(s): 84138602 Code(s): I25.10 - ATHSCL HEART DISEASE OF [place] CORONARY ARTERY W/O ANG PCTRS Status: Chronic Current Visit: Yes Qualifiers: Coronary Disease-Associated Artery/Lesion type: bypass graft [place] vs. transplanted heart: [place] heart Associated angina: without angina Qualified Code(s): I25.810 - Atherosclerosis of coronary artery bypass graft(s) without angina pectoris (5) Myasthenia gravis SNOMED Code(s): 55634553 Code(s): G70.00 - MYASTHENIA GRAVIS WITHOUT (ACUTE) EXACERBATION Status: Acute Current Visit: Yes (6) CHF (congestive heart failure) SNOMED Code(s): 10111828 Code(s): I50.9 - HEART FAILURE, UNSPECIFIED Status: Acute Current Visit: Yes Qualifiers: Heart failure type: unspecified Heart failure chronicity: acute Qualified Code(s): I50.9 - Heart failure, unspecified - Problem List Review Problem List Initiated/Reviewed/Updated: Yes - My Orders Last 24 Hours: My Active Orders 10/06/20 09:15 Pyridostigmine [Mestinon] 30 mg PO DAILY Sodium Chloride 0.9% [Saline Flush] 10 ml FLUSH ASDIRECTED PRN 10/07/20 09:53 Chest 1V Frontal [CR] Routine Furosemide [Lasix] 20 mg IVPUSH NOW ONE 10/08/20 05:11 BASIC METABOLIC PANEL,BMP [CHEM] DAILY CBC WITH AUTO DIFF [HEME] DAILY PRO B-TYPE NATRIUR PEPT,BNPPRO [CHEM] DAILY 10/09/20 05:11 CBC WITH AUTO DIFF [HEME] DAILY PRO B-TYPE NATRIUR PEPT,BNPPRO [CHEM] DAILY - Assessment Assessment:: His BNP was high,>6000. I will stop IVF,and give him one time Lasix. Continue the rest of treatment. - Plan Plan:: Give 20 mg of IV Lasix. Repeat CXR.
[2020-10-07] MEDS: Enoxaparin 60 MG/0.6 ML Syringe SUBCUT SCH (12:49)
[2020-10-07] MEDS: cefTRIAXone 1 GM Vial IVPUSH SCH (12:51)
[2020-10-07] MEDS: atorvaSTATin 10 MG Tab PO SCH (20:39)
[2020-10-08] MEDS: Albuterol/Ipratropium 3.0-0.5 MG/3 ML Neb Soln NEB SCH ×3 (05:23→21:42)
[2020-10-08] MEDS: Dexamethasone 4 MG/ML SDV IVPUSH SCH ×2 (08:26→08:30)
[2020-10-08] MEDS: Metoprolol Succinate 50 MG Tab.ER PO SCH (08:26)
[2020-10-08] MEDS: Azithromycin 250 MG Tab PO SCH (08:27)
[2020-10-08] MEDS: Sodium Chloride 0.9% 10 ML Syringe FLUSH PRN ×4 (08:30→21:12)
--- NOTE | 2020-10-08 09:29 | PCM.PN ---
- General Info Date of Service: 10/08/20 Subjective Update: Still SOB,but feels better. Functional Status: Reports: Pain Controlled, Tolerating Diet, Ambulating - Review of Systems Pulmonary: Reports: Shortness of Breath, Cough Cardiovascular: Reports: Dyspnea on Exertion, Orthopnea Gastrointestinal: Reports: No Symptoms Genitourinary: Reports: No Symptoms - Patient Data Vitals - Most Recent: Last Vital Signs Temp 97.7 F 10/07/20 23:30 Pulse 97 10/08/20 08:26 Resp 20 10/07/20 23:30 BP 146/88 H 10/08/20 08:26 Pulse Ox 95 10/07/20 23:30 Weight - Most Recent: 105.778 kg Lab Results Last 24 Hours: Laboratory Results - last 24 hr 10/07/20 10/08/20 10/08/20 Range/Units 17:51 06:50 06:50 WBC 6.6 (3.2-10.1) x10-3/uL RBC 4.25 (3.90-5.90) x10(6)uL Hgb 13.0 (12.9-17.7) g/dL Hct 40.2 (38.3-50.1) % MCV 94.7 (80.8-98.7) fL MCH 30.7 (27.0-33.3) pg MCHC 32.4 (28.7-35.3) g/dL RDW 14.0 (12.4-15.0) % Plt Count 199 (117-477) x10(3)uL MPV 8.0 (6.7-11.0) fL Neut % (Auto) 88.6 H (40.3-71.8) % Lymph % (Auto) 6.9 L (15.8-45.3) % [place] % (Auto) 4.4 L (5.5-15.2) % Eos % (Auto) 0.0 L (0.1-6.8) % Baso % (Auto) 0.1 L (0.3-3.8) % Neut # (Auto) 5.9 (1.7-6.9) x10-3/uL Lymph # (Auto) 0.5 (0.5-4.5) x10-3/uL [place] # (Auto) 0.3 (0.0-1.2) x10-3/uL Eos # (Auto) 0.0 (0.0-0.6) x10-3/uL Baso # (Auto) 0.0 (0.0-0.3) x10-3/uL Sodium 141 (135-145) mmol/L Potassium 3.9 (3.5-5.3) mmol/L Chloride 106 (100-110) mmol/L Carbon Dioxide 23 (21-32) mmol/L BUN 55 H (7-18) mg/dL Creatinine 3.0 H* (0.70-1.30) mg/dL Est Cr Clr Drug Dosing 22.99 mL/min Estimated GFR (MDRD) 20 L (>60) BUN/Creatinine Ratio 18.3 (9-20) Glucose 182 H (80-116) mg/dL POC Glucose 278 H (74-100) mg/dL Calcium 8.7 (8.6-10.2) mg/dL NT-Pro-B Natriuret Pep (<=450) pg/mL 10/08/20 Range/Units 06:50 WBC (3.2-10.1) x10-3/uL RBC (3.90-5.90) x10(6)uL Hgb (12.9-17.7) g/dL Hct (38.3-50.1) % MCV (80.8-98.7) fL MCH (27.0-33.3) pg MCHC (28.7-35.3) g/dL RDW (12.4-15.0) % Plt Count (117-477) x10(3)uL MPV (6.7-11.0) fL Neut % (Auto) (40.3-71.8) % Lymph % (Auto) (15.8-45.3) % [place] % (Auto) (5.5-15.2) % Eos % (Auto) (0.1-6.8) % Baso % (Auto) (0.3-3.8) % Neut # (Auto) (1.7-6.9) x10-3/uL Lymph # (Auto) (0.5-4.5) x10-3/uL [place] # (Auto) (0.0-1.2) x10-3/uL Eos # (Auto) (0.0-0.6) x10-3/uL Baso # (Auto) (0.0-0.3) x10-3/uL Sodium (135-145) mmol/L Potassium (3.5-5.3) mmol/L Chloride (100-110) mmol/L Carbon Dioxide (21-32) mmol/L BUN (7-18) mg/dL Creatinine (0.70-1.30) mg/dL Est Cr Clr Drug Dosing mL/min Estimated GFR (MDRD) (>60) BUN/Creatinine Ratio (9-20) Glucose (80-116) mg/dL POC Glucose (74-100) mg/dL Calcium (8.6-10.2) mg/dL NT-Pro-B Natriuret Pep 18583 H* (<=450) pg/mL Med Orders - Current: Current Medications Albuterol/Ipratropium (Duoneb 3.0-0.5 Mg/3 Ml) 3 ml NEB Q8H [facility] Last Admin: 10/08/20 05:23 Dose: 3 ml Documented by: Atorvastatin Calcium (Lipitor) 10 mg PO BEDTIME [facility] Last Admin: 10/07/20 20:39 Dose: 10 mg Documented by: Azithromycin (Zithromax) 250 mg PO DAILY [facility] Stop: 10/09/20 23:59 Last Admin: 10/08/20 08:27 Dose: 250 mg Documented by: Ceftriaxone Sodium (Rocephin) 1 gm IVPUSH Q24H [facility] Last Admin: 10/07/20 12:51 Dose: 1 gm Documented by: Dexamethasone (Decadron) 6 mg IVPUSH DAILY [facility] Last Admin: 10/08/20 08:30 Dose: 6 mg Documented by: Enoxaparin Sodium (Lovenox) 50 mg SUBCUT Q24H [facility] Last Admin: 10/07/20 12:49 Dose: 50 mg Documented by: Furosemide (Lasix) 40 mg IVPUSH BID [facility] Metoprolol Succinate (Toprol Xl) 50 mg PO DAILY [facility] Last Admin: 10/08/20 08:26 Dose: 50 mg Documented by: Pyridostigmine [place] (Mestinon) 30 mg PO DAILY [facility] Last Admin: 10/08/20 08:26 Dose: 30 mg Documented by: Sodium Chloride (Saline Flush) 10 ml FLUSH ASDIRECTED PRN PRN Reason: flush med Last Admin: 10/08/20 08:30 Dose: 10 ml Documented by: Discontinued Medications Furosemide (Lasix) 40 mg IVPUSH NOW ONE Stop: 10/06/20 09:02 Last Admin: 10/06/20 09:19 Dose: 40 mg Documented by: Furosemide (Lasix) 20 mg IVPUSH NOW ONE Stop: 10/07/20 09:54 Last Admin: 10/07/20 10:10 Dose: 20 mg Documented by: Sodium Chloride (Normal Saline) 1,000 mls @ 75 mls/hr IV ASDIRECTED NATALIE Last Admin: 10/06/20 03:18 Dose: 75 mls/hr Documented by: Azithromycin 500 mg/ Sodium (Chloride) 250 mls @ 250 mls/hr IV ONETIME ONE Stop: 10/05/20 14:29 Last Admin: 10/05/20 13:46 Dose: 250 mls/hr Documented by: Prednisone (Prednisone) 5 mg PO DAILY [facility] Pyridostigmine [place] (Mestinon) 60 mg PO DAILY [facility] Last Admin: 10/06/20 12:12 Dose: Not Given Documented by: - Exam Quality Assessment: Supplemental Oxygen General: Alert HEENT: Pupils Equal Neck: Supple Lungs: Crackles, Rales Cardiovascular: Regular Rate Sepsis Event Note - Evaluation Sepsis Screening Result: No Definite Risk - Focused Exam Vital Signs: Vital Signs Temp Pulse Pulse Resp BP BP Pulse Ox 10/08/20 08:26 97 146/88 H 10/07/20 23:30 97.7 F 70 20 164/84 H 95 - Problem List & Annotations (1) COVID-19 SNOMED Code(s): 540113965 Code(s): U07.1 - COVID-19 Status: Acute Current Visit: Yes (2) CKD (chronic kidney disease) SNOMED Code(s): 905607692 Code(s): N18.9 - CHRONIC KIDNEY DISEASE, UNSPECIFIED Status: Acute Current Visit: Yes Qualifiers: Chronic kidney disease stage: stage 3 (moderate) (3) Diabetes type 2, controlled SNOMED Code(s): 89198640, 785639636 Code(s): E11.9 - TYPE 2 DIABETES MELLITUS WITHOUT COMPLICATIONS Status: Acute Current Visit: Yes Qualifiers: Diabetes mellitus technician terminal and repeater insulin use: without half-way use Diabetes mellitus complication status: with kidney complications Chronic kidney disease stage: stage 3 (moderate) (4) CAD (coronary artery disease) SNOMED Code(s): 82217965 Code(s): I25.10 - ATHSCL HEART DISEASE OF [place] CORONARY ARTERY W/O ANG PCTRS Status: Chronic Current Visit: Yes Qualifiers: Coronary Disease-Associated Artery/Lesion type: bypass graft [place] vs. transplanted heart: [place] heart Associated angina: without angina Qualified Code(s): I25.810 - Atherosclerosis of coronary artery bypass graft(s) without angina pectoris (5) Myasthenia gravis SNOMED Code(s): 60053019 Code(s): G70.00 - MYASTHENIA GRAVIS WITHOUT (ACUTE) EXACERBATION Status: Acute Current Visit: Yes (6) CHF (congestive heart failure) SNOMED Code(s): 45047314 Code(s): I50.9 - HEART FAILURE, UNSPECIFIED Status: Acute Current Visit: Yes Qualifiers: Heart failure type: unspecified Heart failure chronicity: acute Qualified Code(s): I50.9 - Heart failure, unspecified - Problem List Review Problem List Initiated/Reviewed/Updated: Yes - My Orders Last 24 Hours: My Active Orders 10/07/20 09:53 Chest 1V Frontal [CR] Routine 10/08/20 09:30 Furosemide [Lasix] 40 mg IVPUSH BID 10/08/20 09:56 VL Duplex Lwr Ext Veins Comp [US] Routine 10/09/20 05:11 CBC WITH AUTO DIFF [HEME] DAILY PRO B-TYPE NATRIUR PEPT,BNPPRO [CHEM] DAILY - Assessment Assessment:: His BNP was high,>6000. I will stop IVF,and give him one time Lasix. Continue the rest of treatment. - Plan Plan:: CXR looks worse. Will increase Diuresis. Possible DC in AM,with Home monitoring.
[2020-10-08] MEDS: Furosemide 40 MG/4 ML VIAL IVPUSH SCH ×2 (10:07→21:11)
[2020-10-08] MEDS: Enoxaparin 60 MG/0.6 ML Syringe SUBCUT SCH (13:47)
[2020-10-08] MEDS: cefTRIAXone 1 GM Vial IVPUSH SCH (13:47)
[2020-10-08] MEDS: atorvaSTATin 10 MG Tab PO SCH (21:13)
[2020-10-09] MEDS: Albuterol/Ipratropium 3.0-0.5 MG/3 ML Neb Soln NEB SCH (05:54)
[2020-10-09 05:57] VITALS: PULSE 92
[2020-10-09 08:03] VITALS: BP 162/80
[2020-10-09] MEDS: Dexamethasone 4 MG/ML SDV IVPUSH SCH (08:39)
[2020-10-09] MEDS: Furosemide 40 MG/4 ML VIAL IVPUSH SCH (08:40)
[2020-10-09] MEDS: Metoprolol Succinate 50 MG Tab.ER PO SCH (08:40)
[2020-10-09] MEDS: Azithromycin 250 MG Tab PO SCH (08:41)
--- NOTE | 2020-10-09 11:10 | DISCH ---
DISCHARGE DATE: 10/09/2020 REASON FOR ADMISSION: COVID-19 pneumonia. DISCHARGE DIAGNOSES: 1. COVID-19 pneumonia. 2. Chronic kidney disease. 3. Coronary artery disease. 4. Congestive heart failure. CONSULTATION: Infectious Disease on-call from [facility] on 10/08. BRIEF HISTORY: This is a 75-year-old male who had come into the clinic to see Dr. Persaud with shortness of breath and cough, was found to have pneumonia. COVID-19 was positive. He needed oxygenation at admission and has remained stable on 5 L. He is saturating at 90% to 95%. Any attempts to wean him off failed. BNP was elevated at 12 to 13,000, improved with diuresis. He was not eligible for remdesivir because of his creatinine, but he did get Decadron 6 mg IV daily. DVT was found to be negative. I was not able to do a CT based on his creatinine to rule out PE. He got VTE prophylaxis while in the hospital. He is ready to go home today and will go home with home health and home oxygenation. FOLLOWUP: He is advised to see Dr. Persaud in the clinic in 1 week. MEDICATIONS TO GO HOME WITH: He would return home with 20 mg of Lasix daily and finish a course of cephalexin for 1 week. I will also send him home on 20 mg of prednisone twice a day. Please note that I spent more than 35 minutes in the discharge of the patient. /[id number] PADMAJA/RYAN
== END 2020-10-09 11:45 | disposition home health service (06) | DRG 177 ==
LOC: FB.MS 12:35
PROVIDERS: ADMIT Family Medicine; ATTEND Family Medicine
DX: U07.1 COVID-19 (principal); J12.89 Other viral pneumonia; I13.0 Hypertensive heart and chronic kidney disease with heart failure and stage 1 through stage 4 chronic kidney disease, or unspecified chronic kidney disease; I25.810 Atherosclerosis of coronary artery bypass graft(s) without angina pectoris; I50.9 Heart failure, unspecified; E11.22 Type 2 diabetes mellitus with diabetic chronic kidney disease; N18.30 Chronic kidney disease, stage 3 unspecified; E78.00 Pure hypercholesterolemia, unspecified; J45.909 Unspecified asthma, uncomplicated; M10.9 Gout, unspecified; E66.9 Obesity, unspecified; G70.00 Myasthenia gravis without (acute) exacerbation; Z95.1 Presence of aortocoronary bypass graft; Z79.82 Long term (current) use of aspirin; Z79.52 Long term (current) use of systemic steroids; Z95.5 Presence of coronary angioplasty implant and graft; Z79.899 Other long term (current) drug therapy; Z68.31 Body mass index [BMI] 31.0-31.9, adult
CPT/HCPCS: 36415; 71045; 80048; 80053; 80069; 82728; 82962; 83605; 83880; 84484; 85025; 85379; 85610; 85730; 86140; 87070; 87205; 93005; 93970; 94640; 99222; 99231; 99232; 99239; A9270-GY; J0456; J0696; J1100; J1650; J1940; J7030; J7050; J7620-GY; U0002

== ENCOUNTER 2021-07-30 06:42 | Day surgery (SDC) | payer MEDICARE, BC ==
[2021-07-30] MEDS ORDERED: Lidocaine 1% PF 2 ML SDV INJECT ONE (06:43)
[2021-07-30] MEDS ORDERED: Dexamethasone 4 MG/ML 5 ML MDV IVPUSH ONE (06:43)
[2021-07-30] MEDS ORDERED: Propofol 200 MG/20 ML SDV IV ONE (06:43)
[2021-07-30] MEDS ORDERED: Sodium Chloride 0.9% 10 ML Syringe FLUSH PRN (06:45)
[2021-07-30] MEDS ORDERED: Lactated Ringers 1,000 ML IV SCH (06:45)
[2021-07-30] MEDS ORDERED: Albuterol/Ipratropium 3.0-0.5 MG/3 ML Neb Soln NEB ONE (07:44)
--- NOTE | 2021-07-30 08:45 | PCM.HP.2 ---
H&P History of Present Illness - General Date of Service: 07/30/21 Admit Problem/Dx: Admission Diagnosis/Problem Admission Diagnosis/Problem Colonoscopy Source of Information: Patient, Old Records History Limitations: Reports: No Limitations - History of Present Illness Initial Comments - Free Text/Narative: Here for Colonoscopy for hx polyps. Also had chronic SOB since COVID last winter. This improved after Duoneb and steroids - Related Data Allergies/Adverse Reactions: Allergies Allergy/AdvReac Type Severity Reaction Status Date / Time No Known Allergies Allergy Verified 07/30/21 07:35 Home Medications: Home Meds Aspirin [Halfprin] 81 mg PO DAILY 08/31/15 [History] Calcium Carbonate/Vitamin D3 [Caltrate 600 Plus D3 Tablet] 600 mg PO DAILY 08/31/15 [History] Fluticasone Propionate [Flonase] 1 spray NASBOTH DAILY PRN 08/31/15 [History] Pyridostigmine [Mestinon] 60 mg PO DAILY 08/31/15 [History] Metoprolol Succinate [Toprol XL 50mg] 50 mg PO DAILY 10/05/20 [History] atorvaSTATin [Lipitor] 10 mg PO BEDTIME 10/05/20 [History] Furosemide [Lasix] 20 mg PO DAILY #30 tab 10/09/20 [Rx] Cholecalciferol (Vitamin D3) [Vitamin D3] 25 mcg PO DAILY 07/29/21 [History] allopurinoL [Zyloprim] 100 mg PO DAILY 07/29/21 [History] predniSONE [Prednisone] 5 mg PO DAILY 07/29/21 [History] Past Medical History HEENT History: Reports: Allergic Rhinitis, Cataract, Impaired Vision, Macular Degeneration Other HEENT History: CERVICALGIA Cardiovascular History: Reports: CAD, High Cholesterol, Hypertension, Other (See Below) Other Cardiovascular History: EDEMA. ASCENDING AORTA DILATION. MILD AORTIC STENOSIS. BICUSPID AORTIC VALVE Respiratory History: Reports: Asthma Gastrointestinal History: Reports: Colon Polyp, Hemorrhoids Genitourinary History: Reports: Chronic Renal Insuffiency, Other (See Below) Other Genitourinary History: STAGE 3 CKD. 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 ERECTILE DYSFUNCTION Musculoskeletal History: Reports: Back Pain, Chronic, Gout, Other (See Below) Other Musculoskeletal History: CERVICALGIA. 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 Respiratory Surgical History: Reports: None GI Surgical History: Reports: Colonoscopy Other GI Surgeries/Procedures: BENIGN NEOPLASM OF COLON, DYSPLASTIC COLON POLYP Male Surgical History: Reports: Other (See Below) Other Male Surgeries/Procedures: PSYCHOSEXUAL DYSFUNCTION WITH INHIBITED SEXUAL EXCITEMENT Endocrine Surgical History: Reports: None Neurological Surgical History: Reports: None Musculoskeletal Surgical History: Reports: None Oncologic Surgical History: Reports: None Dermatological Surgical History: Reports: None Social & Family History - Caffeine Use Caffeine Use: Reports: Coffee Other Caffeine Use: 2-3 times a wk - Living Situation & Occupation Living situation: Reports: , with Spouse Occupation: Retired H&P Review of Systems - Review of Systems: Review Of Systems: See Below Pulmonary: Reports: Shortness of Breath Cardiovascular: Reports: No Symptoms Gastrointestinal: Reports: No Symptoms Genitourinary: Reports: No Symptoms Exam - Exam Exam: See Below - Vital Signs Vital Signs: Last Vital Signs Temp 98.4 F 07/30/21 07:43 Pulse 60 07/30/21 07:43 Resp 19 07/30/21 07:43 BP 180/96 H 07/30/21 07:43 Pulse Ox 95 07/30/21 07:43 Weight: 112.9 kg - Exam General: Alert, Oriented Lungs: Clear to Auscultation (after neb treatment) Cardiovascular: Regular Rate GI/Abdominal Exam: Soft, Non-Tender Sepsis Event Note - Focused Exam Vital Signs: Vital Signs Temp Pulse Resp BP Pulse Ox 07/30/21 07:43 98.4 F 60 19 180/96 H 95 Problem List Initiated/Reviewed/Updated: Yes Orders Last 24hrs: Active Orders 24 hr Category Date Time Status Patient Status [ADT] Routine ADT 07/30/21 06:45 Active Patient to Empty Bladder [RC] ASDIRECTED Care 07/30/21 06:45 Active RT Aerosol Therapy [RC] ASDIRECTED Care 07/30/21 07:44 Active Verify Patient Consent Obtain [RC] ASDIRECTED Care 07/30/21 06:45 Active Nothing Per Oral Diet [DIET] Diet 07/30/21 Breakfast Ordered Lactated Ringers [Ringers, Lactated] 1,000 ml Med 07/30/21 06:45 Active IV ASDIRECTED Sodium Chloride 0.9% [Saline Flush] Med 07/30/21 06:45 Active 10 ml FLUSH ASDIRECTED PRN Peripheral IV Insertion Adult [OM.PC] Routine Oth 07/30/21 06:45 Ordered Resuscitation Status Routine Resus Stat 07/29/21 14:58 Ordered Medication Orders Lactated Ringer's (Ringers, Lactated) 1,000 mls @ 125 mls/hr IV ASDIRECTED NATALIE Last Admin: 07/30/21 07:53 Dose: 125 mls/hr Documented by: CHRISTOFER Sodium Chloride (Sodium Chloride 0.9% 10 Ml Syringe) 10 ml FLUSH ASDIRECTED PRN PRN Reason: Keep Vein Open Last Admin: 07/30/21 08:26 Dose: 10 ml Documented by: CHRISTOFER Assessment/Plan Comment:: Hx Colon Polyps ok to proceed, risks and complicatons reviewed, consent obtained
--- NOTE | 2021-07-30 09:39 | PCM.OPNOTE ---
- General Post-Op/Procedure Note Date of Surgery/Procedure: 07/30/21 Operative Procedure(s): Colonoscopy withpolypectomy X 5 Findings: 5 polyps, tics Pre Op Diagnosis: Hx Polyps Post-Op Diagnosis: Same Anesthesia Technique: MAC Primary Surgeon: Travis Brian Pathology: polyps EBL in mLs: 0 Complications: None Condition: Good
[2021-07-30 10:52] VITALS: BP 154/75; PULSE 59
--- NOTE | 2021-07-30 11:25 | OR ---
DATE OF OPERATION: 07/30/2021 SURGEON: Travis Brian MD PREOPERATIVE DIAGNOSIS: History of colon polyps. POSTOPERATIVE DIAGNOSES: 1. Colon polyps. 2. Diverticulosis. PROCEDURE: Colonoscopy with polypectomy x5. ANESTHESIA: IV sedation. PROCEDURE IN DETAIL: The patient was brought to the procedure room where he was placed on his left side and IV sedation administered. Digital rectal exam reveals enlarged external hemorrhoids. Colonoscope was inserted and advanced to the level of cecum with some difficulty getting through a very tortuous sigmoid colon with multiple large diverticula throughout the entire left colon. I was able to reach the cecum which was confirmed by identifying the appendiceal lumen and ileocecal valve. Prep was fair with liquid stool remaining throughout and some solid stool from his diverticulosis. In the cecum was an 8 mm sessile polyp removed with a cautery snare and retrieved in the polyp trap. In the proximal ascending colon were 4 more similar sized polyps around 8 mm, all removed with a cautery snare and retrieved in the polyp trap. A total of 5 polyps were removed. The remaining ascending and transverse colon were normal. Descending and sigmoid colon at multiple diverticula present. Rectum was normal and retroflexion was normal. Air was removed and the scope withdrawn. The patient tolerated the procedure well and returned to Recovery in stable condition. Recommend surveillance colonoscopy again in 3 years. The patient was short of breath and had some wheezing prior to the colonoscopy. This resolved with a DuoNeb treatment. He did have COVID earlier this year. He currently does not have a primary care provider and we will have him see Dr. Jermna Mccarthy in the near future to reestablish health care. /[id number] Darryn GARDINER/RYAN
== END 2021-07-30 10:45 | disposition home or self-care (01) ==
LOC: FB.SDS 06:42
PROVIDERS: ATTEND Surgery
DX: Z12.11 Encounter for screening for malignant neoplasm of colon (principal); D12.0 Benign neoplasm of cecum; D12.2 Benign neoplasm of ascending colon; K57.30 Diverticulosis of large intestine without perforation or abscess without bleeding; E78.00 Pure hypercholesterolemia, unspecified; I12.9 Hypertensive chronic kidney disease with stage 1 through stage 4 chronic kidney disease, or unspecified chronic kidney disease; N18.30 Chronic kidney disease, stage 3 unspecified; E11.22 Type 2 diabetes mellitus with diabetic chronic kidney disease; E66.9 Obesity, unspecified; Z79.82 Long term (current) use of aspirin; Z79.899 Other long term (current) drug therapy; Z98.890 Other specified postprocedural states
CPT/HCPCS: 00811; 45385; 88305; J1100; J2704; J7120; J7620-GY

== ENCOUNTER 2021-08-01 09:33 | Emergency (ER) | payer MEDICARE, BC ==
--- NOTE | 2021-08-01 10:42 | EDM.PDOC ---
ED HPI GENERAL MEDICAL PROBLEM - General Chief Complaint: General Stated Complaint: BLOOD IN STOOL Time Seen by Provider: 08/01/21 09:35 Source of Information: Reports: Patient History Limitations: Reports: No Limitations - History of Present Illness INITIAL COMMENTS - FREE TEXT/NARRATIVE: Patient presented to the ED because of bloody stool. He had a colonoscopy with polypectomy 2 days ago and this morning he had loose stool that is bloody. There is no abdominal pain, N/V. Denies feeling dizzy or weak. - Related Data Allergies Allergy/AdvReac Type Severity Reaction Status Date / Time No Known Allergies Allergy Verified 07/30/21 07:35 Home Meds: Home Meds Aspirin [Halfprin] 81 mg PO DAILY 08/31/15 [History] Calcium Carbonate/Vitamin D3 [Caltrate 600 Plus D3 Tablet] 600 mg PO DAILY 08/31/15 [History] Fluticasone Propionate [Flonase] 1 spray NASBOTH DAILY PRN 08/31/15 [History] Pyridostigmine [Mestinon] 60 mg PO DAILY 08/31/15 [History] Metoprolol Succinate [Toprol XL 50mg] 50 mg PO DAILY 10/05/20 [History] atorvaSTATin [Lipitor] 10 mg PO BEDTIME 10/05/20 [History] Furosemide [Lasix] 20 mg PO DAILY #30 tab 10/09/20 [Rx] Cholecalciferol (Vitamin D3) [Vitamin D3] 25 mcg PO DAILY 07/29/21 [History] allopurinoL [Zyloprim] 100 mg PO DAILY 07/29/21 [History] predniSONE [Prednisone] 5 mg PO DAILY 07/29/21 [History] Past Medical History HEENT History: Reports: Allergic Rhinitis, Cataract, Impaired Vision, Macular Degeneration Other HEENT History: CERVICALGIA Cardiovascular History: Reports: CAD, High Cholesterol, Hypertension, Other (See Below) Other Cardiovascular History: EDEMA. ASCENDING AORTA DILATION. MILD AORTIC STENOSIS. BICUSPID AORTIC VALVE Respiratory History: Reports: Asthma Gastrointestinal History: Reports: Colon Polyp, Hemorrhoids Genitourinary History: Reports: Chronic Renal Insuffiency, Other (See Below) Other Genitourinary History: STAGE 3 CKD. 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 ERECTILE DYSFUNCTION Musculoskeletal History: Reports: Back Pain, Chronic, Gout, Other (See Below) Other Musculoskeletal History: CERVICALGIA. 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 Respiratory Surgical History: Reports: None GI Surgical History: Reports: Colonoscopy Other GI Surgeries/Procedures: BENIGN NEOPLASM OF COLON, DYSPLASTIC COLON POLYP Male Surgical History: Reports: Other (See Below) Other Male Surgeries/Procedures: PSYCHOSEXUAL DYSFUNCTION WITH INHIBITED SEXUAL EXCITEMENT Endocrine Surgical History: Reports: None Neurological Surgical History: Reports: None Musculoskeletal Surgical History: Reports: None Oncologic Surgical History: Reports: None Dermatological Surgical History: Reports: None Social & Family History - Caffeine Use Caffeine Use: Reports: Coffee Other Caffeine Use: 2-3 times a wk - Living Situation & Occupation Living situation: Reports: , with Spouse Occupation: Retired ED ROS GENERAL - Review of Systems Review Of Systems: See Below Constitutional: Reports: No Symptoms HEENT: Reports: No Symptoms Respiratory: Reports: No Symptoms Cardiovascular: Reports: No Symptoms Endocrine: Reports: No Symptoms GI/Abdominal: Reports: Bloody Stool : Reports: No Symptoms Musculoskeletal: Reports: No Symptoms Skin: Reports: No Symptoms Neurological: Reports: No Symptoms Psychiatric: Reports: No Symptoms Hematologic/Lymphatic: Reports: No Symptoms Immunologic: Reports: No Symptoms ED EXAM, GENERAL - Physical Exam Exam: See Below Exam Limited By: No Limitations General Appearance: Alert, No Apparent Distress Ears: Normal External Exam, Normal Canal Nose: Normal Inspection, Normal Mucosa, No Blood Throat/Mouth: Normal Inspection, Normal Lips, Normal Teeth, Normal Gums Head: Atraumatic, Normocephalic Neck: Normal Inspection, Supple, Non-Tender, Full Range of Motion Respiratory/Chest: No Respiratory Distress, Lungs Clear, Normal Breath Sounds Cardiovascular: Normal Peripheral Pulses, Regular Rate, Rhythm, No Edema, No Gallop, No JVD, No Murmur, No Rub GI/Abdominal: Normal Bowel Sounds, Soft, Non-Tender, No Organomegaly, No Distention, No Abnormal Bruit Back Exam: Normal Inspection, Full Range of Motion Extremities: Normal Inspection, Normal Range of Motion, Non-Tender, No Pedal Edema, Normal Capillary Refill Neurological: Alert, Oriented, CN II-XII Intact, Normal Cognition, Normal Gait, Normal Reflexes, No Motor/Sensory Deficits Psychiatric: Normal Affect, Normal Mood Skin Exam: Warm, Intact, Normal Color, No Rash Course - Vital Signs Text/Narrative:: Hb and abd xray result was reviewed and discussed with patient and his Last Recorded V/S: Last Vital Signs Temp 36.4 C 08/01/21 09:33 Pulse 78 08/01/21 10:55 Resp 20 08/01/21 10:55 BP 130/82 08/01/21 10:55 Pulse Ox 97 08/01/21 10:55 - Orders/Labs/Meds Orders: Active Orders 24 hr Category Date Time Status Abdomen 2V AP Flat Upright [CR] Stat Exams 08/01/21 09:55 Taken Labs: Laboratory Tests 08/01/21 Range/Units 10:06 Hgb 12.4 L (12.9-17.7) g/dL Departure - Departure Time of Disposition: 10:35 Disposition: Home, Self-Care 01 Condition: Good Clinical Impression: Status post colonoscopy, LGI bleed - Discharge Information Instructions: Colonoscopy, Adult, Care After, [id number], Lower Gastrointestinal Bleeding Referrals: Didier Joy DO [Primary Care Provider] - Forms: ED Department Discharge Additional Instructions: Please read discharge instructions on lower GI bleed Do not take your aspirin for 1 week Return to the ED if you are profusely bleeding, dizziness etc Sepsis Event Note (ED) - Evaluation Sepsis Screening Result: No Definite Risk - Focused Exam Vital Signs: Vital Signs Temp Pulse Resp BP Pulse Ox 08/01/21 10:55 78 20 130/82 97 08/01/21 09:33 36.4 C 82 20 134/83 96 - My Orders Last 24 Hours: My Active Orders 08/01/21 09:55 Abdomen 2V AP Flat Upright [CR] Stat - Assessment/Plan Last 24 Hours: My Active Orders 08/01/21 09:55 Abdomen 2V AP Flat Upright [CR] Stat
[2021-08-01 11:30] VITALS: BP 130/82; PULSE 78
== END 2021-08-01 11:00 | disposition home or self-care (01) ==
LOC: FB.ED 09:33
DX: K92.2 Gastrointestinal hemorrhage, unspecified (principal); M10.9 Gout, unspecified; I25.10 Atherosclerotic heart disease of native coronary artery without angina pectoris; E78.00 Pure hypercholesterolemia, unspecified; I12.9 Hypertensive chronic kidney disease with stage 1 through stage 4 chronic kidney disease, or unspecified chronic kidney disease; E11.22 Type 2 diabetes mellitus with diabetic chronic kidney disease; N18.30 Chronic kidney disease, stage 3 unspecified; E66.9 Obesity, unspecified; Z68.30 Body mass index [BMI] 30.0-30.9, adult; Z95.1 Presence of aortocoronary bypass graft; Z98.890 Other specified postprocedural states
CPT/HCPCS: 36415; 74019; 85018; 99285-25

== ENCOUNTER 2025-06-19 03:29 | Emergency (ER) | payer MEDICARE, BC ==
[2025-06-19 04:16] LABS: MEAN PLATELET VOLUME 8.3 fL (6.7-11.0); PLATELET COUNT,PLT 115 x10(3)uL (117-477); RED BLOOD CELL COUNT 4.16 x10(6)uL (3.90-5.90); RED CELL DISTRIBUTION WIDTH 14.9 % (12.4-15.0); WHITE BLOOD CELL COUNT,WBC 9.0 x10-3/uL (3.2-10.1)
[2025-06-19 04:26] LABS: A/G RATIO 0.7; ALANINE AMINOTRANSFERASE,ALT 8 U/L (12-36); ASPARTATE AMNIOTRANSFERASE,AST 13 IU/L (5-25); BILIRUBIN TOTAL 1.4 mg/dL (0.1-1.3); BLOOD UREA NITROGEN,BUN 60 mg/dL (7-18); CARBON DIOXIDE,CO2 18 mmol/L (21-32); CHLORIDE,CL 101 mmol/L (100-110); EST CRCL DRUG DOSING (CG) 10.78 mL/min; ESTIMATED GFR 9 mL/min (>60); GLUCOSE RANDOM 202 mg/dL (80-116); POTASSIUM,K 3.3 mmol/L (3.5-5.3); PROTEIN TOTAL,TP 6.4 g/dL (6.0-8.0); SODIUM,NA 139 mmol/L (135-145)
[2025-06-19 04:27] LABS: BASE EXCESS VENOUS,POC -6 mmol/L (-2 - 3+); PCO2 VENOUS,POC 28 mmHg (41-51); PH VENOUS,POC 7.40 pH Units (7.32-7.43)
[2025-06-19 04:28] LABS: CREATININE 6.0 mg/dL (0.70-1.30)
[2025-06-19 04:44] LABS: LYMPHOCYTES PERCENT MAN 2 % (13-37); MONOCYTES PERCENT MAN 11 % (4-12); SEG NEUTROPHILS PERCENT MAN 87 % (46-82)
[2025-06-19 04:45] LABS: GLUCOSE,URINE 100 mg/dL (NORMAL); OCCULT BLOOD,URINE LARGE (NEGATIVE)
[2025-06-19 04:49] LABS: APPEARANCE,URINE SLIGHTLY CLOUDY (CLEAR); SQUAMOUS EPITHELIAL CELLS,UR RARE (NS,R,O)
[2025-06-19] MEDS: Magnesium Sulf 1 GM/2 mL SDV 1 GM in Sodium Chloride 0.9% 50 ML IV ONE (06:59)
[2025-06-19] MEDS: Potassium Chloride 20 MEQ Tab.ER PO ONE (06:59)
[2025-06-19 08:10] VITALS: BP 110/71; PULSE 89
== END 2025-06-19 09:18 ==
LOC: FB.ED 03:29
DX: K63.1 Perforation of intestine (nontraumatic) (principal); K68.19 Other retroperitoneal abscess; C18.0 Malignant neoplasm of cecum; E87.20 Acidosis, unspecified; I13.2 Hypertensive heart and chronic kidney disease with heart failure and with stage 5 chronic kidney disease, or end stage renal disease; I50.9 Heart failure, unspecified; N18.6 End stage renal disease; E11.22 Type 2 diabetes mellitus with diabetic chronic kidney disease; E78.00 Pure hypercholesterolemia, unspecified; I25.10 Atherosclerotic heart disease of native coronary artery without angina pectoris; Z95.5 Presence of coronary angioplasty implant and graft
CPT/HCPCS: 36415; 71045; 74176; 80053; 81001; 83605; 83690; 83735; 85025; 86140; 87040; 93005; 96365; 96367; 99285; A9270; J2543; J7030; 93010

== ENCOUNTER 2025-06-26 13:49 | Emergency (ER) | payer MEDICARE, BC ==
[2025-06-26 17:18] VITALS: BP 150/80; PULSE 88
== END 2025-06-26 14:15 | disposition home or self-care (01) ==
LOC: FB.ED 13:49
DX: M79.89 Other specified soft tissue disorders (principal); I25.10 Atherosclerotic heart disease of native coronary artery without angina pectoris; E78.00 Pure hypercholesterolemia, unspecified; I10 Essential (primary) hypertension; J45.909 Unspecified asthma, uncomplicated; E11.9 Type 2 diabetes mellitus without complications; Z86.16 Personal history of COVID-19; Z95.9 Presence of cardiac and vascular implant and graft, unspecified; Z79.82 Long term (current) use of aspirin; Z79.899 Other long term (current) drug therapy
CPT/HCPCS: 99282